=== PATIENT | male | born 1990 | race African-American/Black ===

== ENCOUNTER 2020-08-06 19:35 | Emergency (ER) | payer OTHER ==
[2020-08-06 20:00] LABS: ABSOLUTE BASOPHILS # (AUTO) 0.1 10^3/uL (0.0-0.2); ABSOLUTE EOSINOPHILS # (AUTO) 0.2 10^3/uL (0.0-0.6); ABSOLUTE LYMPHOCYTES (AUTO) 1.5 10^3/uL (0.5-4.7); ABSOLUTE MONOCYTES (AUTO) 0.4 10^3/uL (0.1-1.4); ABSOLUTE NEUT (AUTO) 2.7 10^3/uL (1.7-8.2); BASOPHILS % (AUTO) 1.3 % (0-2); EOSINOPHILS % (AUTO) 4.6 % (0-6); HEMATOCRIT 37.5 % (37.9-51.0); HEMOGLOBIN 13.3 g/dL (13.5-17.0); MEAN CORPUSCULAR HEMOGLOBIN 29.9 pg (27.0-33.4); MEAN CORPUSCULAR HGB CONC 35.5 g/dL (32.0-36.0); MEAN CORPUSCULAR VOLUME 84 fl (80-97); PLATELET COUNT 272 10^3/uL (150-450); RED BLOOD COUNT 4.45 10^6/uL (4.35-5.55); RED CELL DISTRIBUTION WIDTH 12.3 % (11.5-14.0); SEGMENTED NEUTROPHILS % (AUTO) 55.1 % (42-78); TOTAL CELLS COUNTED % (AUTO) 100 %; WHITE BLOOD COUNT 4.9 10^3/uL (4.0-10.5)
[2020-08-06 20:17] LABS: ALBUMIN 4.5 g/dL (3.5-5.0); ALCOHOL 60 mg/dL (NONE DETECTED); ALKALINE PHOSPHATASE 50 U/L (38-126); ANION GAP 13 (5-19); ASPARTATE AMINO TRANSFERASE 23 U/L (17-59); BILIRUBIN,DIRECT 0.2 mg/dL (0.0-0.4); BILIRUBIN,TOTAL 0.5 mg/dL (0.2-1.3); BLOOD UREA NITROGEN 11 mg/dL (7-20); CALCIUM 9.6 mg/dL (8.4-10.2); CARBON DIOXIDE 24 mmol/L (22-30); CHLORIDE 104 mmol/L (98-107); GLUCOSE 123 mg/dL (75-110); POTASSIUM 3.9 mmol/L (3.6-5.0); TOTAL PROTEIN 7.6 g/dL (6.3-8.2)
--- NOTE | 2020-08-06 20:36 | ER Document Report ---
ED General - General Chief Complaint: Overdose Stated Complaint: POSSIBLE OVERDOSE Time Seen by Provider: 08/06/20 20:36 - HPI Notes: 29-year-old male presents following suicide attempt via intentional overdose. Patient states that he had an argument with his roommate. After this he took 5x 150mg trazodone and 2x 0.2mg clonidine. He also consumed alcohol. He somewhat wavers with this time, per triage note he took this around 1740, patient states that potentially he took meds around noon, then overall stating he does not know what time he took meds. He denies other coingestions. He currently denies complaints. - Related Data Allergies/Adverse Reactions: No Known Allergies Allergy (Verified 08/06/20 19:52) Home Medications: Clonidine, trazadone, prozac, naltraxone Past Medical History - General Information source: Patient - Social History Smoking Status: Former Smoker Frequency of alcohol use: Heavy Family History: None Patient has homicidal ideation: No Review of Systems - Review of Systems Constitutional: No symptoms reported, Fever EENT: No symptoms reported Cardiovascular: No symptoms reported Respiratory: No symptoms reported Gastrointestinal: No symptoms reported Genitourinary: No symptoms reported Male Genitourinary: No symptoms reported Musculoskeletal: No symptoms reported Skin: No symptoms reported Hematologic/Lymphatic: No symptoms reported Neurological/Psychological: Suicidal ideation Physical Exam - Vital signs Vitals: Resp 18 08/06/20 19:47 - General General appearance: Appears well In distress: None Notes: Sleeping at time of evaluation, arouses easily - HEENT Head: Normocephalic, Atraumatic Extraocular movements intact: Yes Pupils: PERRL. No: Dilated - Respiratory Respiratory status: No: Depressed respirations Breath sounds: Normal - Cardiovascular Rhythm: Regular Heart sounds: Normal auscultation Normal capillary refill: Yes - Abdominal Tenderness: Nontender - Extremities General upper extremity: Normal ROM General lower extremity: Normal ROM - Neurological Neuro grossly intact: Yes Cognition: Normal Orientation: AAOx4 Cranial nerves: Normal Cerebellar coordination: Normal Motor strength normal: LUE, RUE, LLE, RLE Sensory: Normal Knee - Reflex grade: 2 = Normal Notes: No clonus - Psychological Associated symptoms: Flat affect - Skin Skin Temperature: Warm Course - Re-evaluation Re-evalutation: 29-year-old male presents following intentional overdose and suicide attempt. In total he took 750 mg trazodone and 0.4 mg clonidine. No hypotension, will give 1 L of fluid for further support. In terms of the trazodone overdose, this is not at toxic level, typical toxicity range for trazodone is 2 to 5 g. He does have some somnolence but arouses easily, this can be an expected side effect. He has no QRS widening or QTC prolongation. No preop is him. The clonidine amount is not a toxic range given the uncertainty of the time of ingestion, will observe in the emergency department for 6 hours until medically cleared. He has undergone a laboratory evaluation, mostly well as magnesium of 1.7, 2 g replacement ordered. 08/07/20 03:01 Patient has completed observation. He is medically clear at this time. He has been IVC'd and will undergo behavioral health evaluation in the morning. - Vital Signs Vital signs: Temp Pulse Resp BP Pulse Ox 97.4 F 79 16 99/61 L 98 08/06/20 19:52 08/06/20 19:52 08/06/20 20:01 08/07/20 01:01 08/07/20 01:01 - Laboratory Result Diagrams: 08/06/20 19:50 08/06/20 19:50 Laboratory results interpreted by me: 08/06/20 08/06/20 08/06/20 19:50 19:50 19:50 Hgb 13.3 L Hct 37.5 L Glucose 123 H Salicylates < 1.0 L Acetaminophen < 10 L - EKG Interpretation by Me Additional EKG results interpreted by me: EKG is interpreted by me. Normal sinus rhythm, rate 83. Narrow QRS, QTC within normal limits. Early re-pole. Discharge - Discharge Clinical Impression: Intentional overdose of drug in tablet form, Suicidal ideation Disposition: OTHER
[2020-08-06] MEDS ORDERED: RINGERS SOLUTION,LACTATED 1,000 ML IV ONE (20:46)
[2020-08-06] MEDS: MAGNESIUM SULFATE/D5W 1 GM/100 ML RTUPB IV SCH ×2 (21:21→22:28)
[2020-08-06 22:48] LABS: ACETAMINOPHEN < 10 ug/mL (10-30); SALICYLATE < 1.0 mg/dL (2.0-20.0)
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
[2020-08-07 12:41] LABS: APPEARANCE,URINE CLEAR; BILIRUBIN,URINE NEGATIVE (NEGATIVE); COLOR,URINE YELLOW; GLUCOSE, URINE NEGATIVE (NEGATIVE); KETONES,URINE NEGATIVE (NEGATIVE); LEUKOCYTE ESTERASE,URINE NEGATIVE (NEGATIVE); NITRITE,URINE NEGATIVE (NEGATIVE); PROTEIN,URINE NEGATIVE (NEGATIVE); URINE SPECIFIC GRAVITY 1.016
[2020-08-07 12:59] LABS: URINE AMPHETAMINES SCREEN NEGATIVE; URINE BARBITURATES SCREEN NEGATIVE; URINE BENZODIAZEPINES SCREEN NEGATIVE; URINE MARIJUANA (THC) SCREEN NEGATIVE; URINE METHADONE SCREEN NEGATIVE; URINE PHENCYCLIDINE SCREEN NEGATIVE
[2020-08-07 13:00] LABS: URINE COCAINE SCREEN UNCONFIRMED POSITIVE
--- NOTE | 2020-08-07 15:16 | EKG REPORT ---
SEVERITY:- BORDERLINE ECG - SINUS RHYTHM PROBABLE LEFT ATRIAL ABNORMALITY [facility], PROBABLE NORMAL EARLY REPOL PATTERN : Confirmed by: Lucretia Cardozo MD 07-Aug-2020 15:15:43
--- NOTE | 2020-08-07 18:50 | ER Document Report ---
Doctor's Note Notes: 08/07/20 18:50 Been in no distress today. Have spoken with the psychiatric team. Patient has been accepted at [facility] tomorrow morning for further evaluation and management. No medications recommended at this time patient has been cooperative
[2020-08-07] MEDS ORDERED: ACETAMINOPHEN 325 MG TABLET PO ONE (21:04)
[2020-08-07] MEDS ORDERED: MELATONIN 5 MG TABLET PO ONE (21:04)
[2020-08-08 08:22] VITALS: BP 153/85
--- NOTE | 2020-08-08 08:59 | ER Document Report ---
Doctor's Note Notes: 08/08/20 08:58 Patient is being transferred to [facility]. He is stable for [facility]. He is cooperative and the vital signs are stable.
== END 2020-08-08 09:08 | disposition other institution (70) ==
LOC: ER 19:35
DX: T43.212A Poisoning by selective serotonin and norepinephrine reuptake inhibitors, intentional self-harm, initial encounter (principal); T46.5X2A Poisoning by other antihypertensive drugs, intentional self-harm, initial encounter; X58.XXXA Exposure to other specified factors, initial encounter; R45.851 Suicidal ideations
CPT/HCPCS: 93005; 99285; 96365; 96366 ×2; 36415; 80307 ×4; 83735; 85025; 80053; 81001; 93010; J3475; J7120; J3490